=== PATIENT | male | born 1970 | race Caucasian/White ===

== ENCOUNTER 2020-09-08 18:24 | Inpatient (IN) | payer OTHER ==
[~2020-09-08] VITALS: Ht 182.9 cm; Wt 6.0 kg
[~2020-09-08 18:24] MED LIST: HYZAAR 100-121 UDTAB
--- NOTE | 2020-09-08 18:51 | NUR ---
PTE REFIERE DOLOR MUSCULAR ,FIEBRE Y TOS DESDE HACE VARIOS HSI.
--- NOTE | 2020-09-08 20:24 | NUR ---
PACIENTE ALERTA,ESTABLE Y ORIENTYADO.SE LE ORIENTA SOBRE EL TRATAMIENTO QUE SE LE REALIZAR EN EL HOSPITAL. BALBIR REFIERE ENTENDER.
--- NOTE | 2020-09-08 23:00 | NUR ---
SE RECIBE PACIENTE ALERTA Y ORIENTADO EN TIEMPO LUGAR Y PERSONA. SE ORIENTA SOBRE CUIDADO Y TRATAMIENTO DE ENFERMERIA, EL MISMO VERBALIZA ENTENDER. VENOPUNCION PATENTE, JENNIFER DE ERITEMA Y EDEMA AL MOMENTO EN H/L. SE MANTIENE CON BARANDAS ELEVADAS Y FRENOS AJUSTADOS POR SEGURIDAD. PTE JENNIFER DE DOLOR AL MOMENTO.
--- NOTE | 2020-09-09 08:07 | NUR ---
PTE ALERTA Y ORIENTADO POR ORTEGA SIDMESNIONES CON BUEN PATRON RESPIRATOPRIO. PTE REFIERE TENER DIARREA, SE LE NOTIFICA A . SE OBSERVA AREA DE CANALIZACION PATENTE, JENNIFER DE EDEMA Y ERITEMA. SE LE ORIENTA SOBRE TRATAMIENTO A SEGUIR, EL REFIER EENTENDER. SE MANTIENE BAJO OBSERVACION POR CAMBIOS. PERMANECE EN CAMA BAJA, BARANDAS ELEVADAS, FRENOS AJUSTADO Y TIMBRE ACCSEIBLE.
[2020-09-15] MEDS ORDERED: INTESTINEX680 M1 PO (07:35)
[2020-09-15] MEDS ORDERED: MEDROL4 MG PO (07:35)
[2020-09-15] MEDS ORDERED: GUAIFENESI100 MG/52 PO (07:35)
[2020-09-15] MEDS ORDERED: VITAMIN C500 M1 PO (07:35)
[2020-09-15] MEDS ORDERED: LEVOFLOXACIN750 MG PO (07:37)
== END 2020-09-15 10:13 | disposition home or self-care (01) | DRG 177 ==
LOC: ER 18:24 → MEDJ 09-09 15:56 → SEC-K 09-09 15:56 → MEDJ 09-09 16:49
PROVIDERS: ADMIT Internal Medicine Cardiovascular Disease; ATTEND Internal Medicine Cardiovascular Disease
PROC: 8E0ZXY6 Isolation (ICD-10-PCS; principal; 2020-09-09)
PROC: BW24ZZZ Computerized Tomography (CT Scan) of Chest and Abdomen (ICD-10-PCS; 2020-09-09)
PROC: XW033E5 Introduction of Remdesivir Anti-infective into Peripheral Vein, Percutaneous Approach, New Technology Group 5 (ICD-10-PCS; 2020-09-10)
PROC: 4A12X4Z Monitoring of Cardiac Electrical Activity, External Approach (ICD-10-PCS; 2020-09-10)
PROC: 3E0F7SF Introduction of Other Gas into Respiratory Tract, Via Natural or Artificial Opening (ICD-10-PCS; 2020-09-10)
DX: U07.1 COVID-19 (principal); J12.89 Other viral pneumonia; Z21 Asymptomatic human immunodeficiency virus [HIV] infection status; D69.6 Thrombocytopenia, unspecified